=== PATIENT | female | born 1995 | race Two or more races ===

== ENCOUNTER 2022-07-29 22:32 | Emergency (ER) | payer MEDICAID, SELFPAY ==
[2022-07-29 22:49] VITALS: BP 112/73; PULSE 77; RESP 16; TEMP 36.8; O2SAT 98; BMI 29.5
[2022-07-29 23:18] LABS: Hematocrit 40.5 % (37.0-47.0); Hemoglobin 12.7 g/dl (12.0-16.0); Mean Corpuscular HGB Conc 31.4 g/dl (31.0-35.0); Mean Corpuscular Hemoglobin 25.9 pg (27.0-33.0); Mean Corpuscular Volume 82.7 fL (80.0-98.0); Mean Platelet Volume 11.2 fL (9.4-12.3); Platelet Count 293 X10*3/uL (160-400); Red Cell Distribution Width 13.4 % (11.0-16.0); White Blood Count 10.4 X10*3/uL (4.8-10.8)
--- NOTE | 2022-07-29 23:24 | PC.NURSE ---
Pt aox3 resting at the bedside with family member at the bedside. Family member reports pt recently ended menses about five days ago. Menses were irregular with large blood clots. Today pt experiences lower abd pain with bleeding, 11/06. Labs drawn. Urine sample collected and sent. Pending results and physician eval. Call sim within reach.
[2022-07-29 23:29] LABS: Appearance Urine Clear; Color Urine Yellow; Glucose Urine UA Negative (Negative); Leukocyte Esterase Urine Large (3+) (Negative); Nitrite Urine Negative (Negative); Specific Gravity - Urine <= 1.005 (1.005-1.025); UMIC TRIGGER UACC YES; Urine Blood Moderate (2+) (Negative); Urine Ketones Negative (Negative); Urine Protein Negative (Neg-Trace)
[2022-07-29 23:33] VITALS: BP 106/66; PULSE 67; RESP 18; TEMP 36.7; O2SAT 98
[2022-07-29 23:39] LABS: Bacteria Urine None Seen (None Seen); Hyaline Casts Urine 0-2 /LPF (0-2); RBC Urine 0-2 /HPF (0-2); Squamous Epithelial Cell Urine 0-2 /HPF (0-2); UACC Culture Trigger YES; WBC Urine >50 /HPF (0-5)
[2022-07-29 23:40] LABS: Alanine Aminotransferase 10 U/L (0-31); Albumin Level 4.3 g/dL (3.5-5.0); Alkaline Phosphatase 116 U/L (39-117); Anion Gap 14 (12-20); Aspartate Amino Transferase 16 U/L (5-31); Bilirubin Total 0.4 mg/dL (0.0-1.0); Blood Urea Nitrogen 12 mg/dL (9-16); Calcium 9.6 mg/dL (8.4-10.2); Carbon Dioxide 22 mmol/L (22-29); Chloride 109 mmol/L (96-108); Creatinine Clr Calc Pharmacy 95.5; Estimated Glomerular Filt Rate > 60; Glucose Random 79 mg/dL (60-115); HCG Quantitative < 2 mIU/mL; Potassium 4.1 mmol/L (3.3-5.1); Sodium 141 mmol/L (135-145); Total Protein 7.4 g/dL (6.5-8.0)
--- NOTE | 2022-07-30 00:35 | ED.ABDPAIN ---
HPI - Abdominal Pain General Chief Complaint: Abdominal Pain Stated Complaint: lower abd pain Time Seen by Provider: 07/29/22 23:22 History of Present Illness HPI narrative: Patient is a 26-year-old female presents today with having pain on urination. Having increasing frequency. Patient is also having her menstruation right now. No fever no chills. Also having some pain in her flank area. Denies any nausea vomiting. No coughing or congestion or upper respiratory symptoms. No abdominal surgery in the past. Patient does not think she is . Related Data Previous Rx's Medication Instructions Recorded ibuprofen 400 mg tablet 400 mg PO Q6H PRN pain #20 tabs 07/30/22 ondansetron 4 mg disintegrating 4 mg PO TID PRN nausea and 07/30/22 tablet vomiting 5 days #10 tabs sulfamethoxazole 800 1 tab PO BID 14 days #28 tabs 07/30/22 mg-trimethoprim 160 mg tablet (Bactrim DS) Allergies Allergy/AdvReac Type Severity Reaction Status Date / Time No Known Allergies Allergy Verified 07/29/22 22:57 Review of Systems Review of Systems Positive abdominal pain in the lower abdomen Yes all other systems are reviewed and are negative [facility], [facility] Past Medical History Attestation statement: The following information was validated with the patient. Social History Social History Advance Directives: No Advance Directives Information Provided: No Physical Exam ED Vital Signs: Vital Signs - 24 hr 07/29/22 22:49 07/29/22 23:33 Temperature 98.2 F 98.1 F Pulse Rate 77 67 Respiratory Rate 16 18 Blood Pressure 112/73 106/66 Pulse Oximetry 98 98 Oxygen Delivery Method Room Air Room Air BMI result Body Mass Index 29.5 Appearance: Alert. Oriented X3. No acute distress. Eyes: Pupils equal, round and reactive to light. ENT: Pharynx normal. Neck: Normal inspection. Neck supple. No lymph nodes noted. No crepitus CVS: Normal heart rate and rhythm. Pulses normal. Normal S1 and S2 Respiratory: No respiratory distress. Breath sounds normal. No Wheezing. No rales Abdomen: Soft and nontender. No rigidity. No distention. good BS x4 Skin: Skin warm and dry. Normal skin color. Normal skin turgor. Extremities: No lower extremity edema. Neurovascular intact to all extremities. No Lacerations. No Rash Neuro: Oriented X 3. No motor deficit. No sensory deficit. Moving all extermities. No slurred speech Medical Decision Making Medical Decision Making [facility] Narrative: Patient well appearing no acute distress. White count is normal. Vital signs are normal no fever. P patient urine was grossly infected. test was negative. White count was normal. Electrolytes unremarkable. Patient's symptoms consistent with having urinary tract infection question early pyelo with some mild nausea and flank pain. We will go ahead and give a L of fluid Toradol for pain some Zofran for nausea and start patient on Rocephin. Patient will be for additional Bactrim currently in stable condition. Differential Diagnosis Differential Diagnoses: The differential diagnosis associated with the presentation includes Pyelonephritis, urinary tract infection, appendicitis, STDs, related issues, obstruction, abscess, perforation Lab Data [facility] Lab Attestation statement: I reviewed the patient's lab results. 07/29/22 23:13 07/29/22 23:13 Labs: Lab Results 07/29/22 07/29/22 07/29/22 Range/Units 23:13 23:13 23:21 WBC 10.4 (4.8-10.8) X10*3/uL RBC 4.90 (4.20-5.50) X10*6/uL Hgb 12.7 (12.0-16.0) g/dl Hct 40.5 (37.0-47.0) % MCV 82.7 (80.0-98.0) fL MCH 25.9 L (27.0-33.0) pg MCHC 31.4 (31.0-35.0) g/dl RDW 13.4 (11.0-16.0) % Plt Count 293 (160-400) X10*3/uL MPV 11.2 (9.4-12.3) fL Absolute Nucleated RBC 0.000 (0.0-0.012) X10*3/uL Nucleated RBC % (auto) 0.0 (0.0-0.2) /100WBC Sodium 141 (135-145) mmol/L Potassium 4.1 (3.3-5.1) mmol/L Chloride 109 H (96-108) mmol/L Carbon Dioxide 22 (22-29) mmol/L Anion Gap 14 (12-20) BUN 12 (9-16) mg/dL Creatinine 0.77 (0.5-1.4) mg/dL Estim Creat Clear Calc 95.5 Estimated GFR > 60 Random Glucose 79 (60-115) mg/dL Calcium 9.6 (8.4-10.2) mg/dL Total Bilirubin 0.4 (0.0-1.0) mg/dL AST 16 (5-31) U/L ALT 10 (0-31) U/L Alkaline Phosphatase 116 (39-117) U/L Total Protein 7.4 (6.5-8.0) g/dL Albumin 4.3 (3.5-5.0) g/dL Beta HCG, Quant < 2 mIU/mL Urine Color Yellow Urine Appearance Clear Urine pH 7.0 (5.0-9.0) Ur Specific [place] <= 1.005 (1.005-1.025) Urine Protein Negative (Neg-Trace) mg/dL Urine Glucose (UA) Negative (Negative) mg/dL Urine Ketones Negative (Negative) mg/dL Urine Blood Moderate (2+) H (Negative) Urine Nitrite Negative (Negative) Ur Leukocyte Esterase Large (3+) H (Negative) Urine RBC 0-2 (0-2) /HPF Urine WBC >50 H (0-5) /HPF Ur Squamous Epith Cells 0-2 (0-2) /HPF Urine Bacteria None Seen (None Seen) Hyaline Casts 0-2 (0-2) /LPF Independent Historian Clinical information obtained from an independent historian. History obtained from or confirmed by: Spouse Prescription Management I considered prescription management with: Pain Medication and Antibiotic Discharge Plan Discharge Clinical Impression: Pyelonephritis Patient Disposition: Home, Self-Care Instructions: Kidney Infection (ED) Prescriptions: New sulfamethoxazole-trimethoprim [Bactrim DS] 800-160 mg tablet 1 tab PO BID 14 Days Qty: 28 0RF ibuprofen 400 mg tablet 400 mg PO Q6H PRN (Reason: pain) Qty: 20 0RF ondansetron 4 mg tablet,disintegrating 4 mg PO TID PRN (Reason: nausea and vomiting) 5 Days Qty: 10 0RF Referrals: Physician,Unknown J [Primary Care Provider] - 3 days
[2022-07-30] MEDS: Ketorolac Tromethamine 30 MG/ML VIAL IVPUSH (01:23)
[2022-07-30] MEDS: ondansetron HCL 4 MG/2 ML VIAL IVPUSH (01:23)
[2022-07-30] MEDS: cefTRIAXone sodium 1 GM in 0.9 % Sodium Chloride 50 ML IV (01:23)
[2022-07-30] MEDS: 0.9 % Sodium Chloride 1,000 ML 999 ML IV (01:24)
--- NOTE | 2022-07-30 01:35 | PC.NURSE ---
Pt aox3 resting at the bedside. IV line started with 22G on L hand. Medicated as ordered. Tolerated well. Pt aware of plan of care.
[2022-07-30 02:25] VITALS: BP 110/65; PULSE 70; RESP 12; TEMP 36.7; O2SAT 98
--- NOTE | 2022-07-30 02:25 | PC.NURSE ---
Pt aox3 resting at bedside in no apparent distress. IV line removed with no complications. Pt tolerated well. Discharge instructions reviewed with pt. Pt verbalizes understanding.
== END 2022-07-30 02:27 | disposition home or self-care (01) ==
PROVIDERS: Emergency Provider Emergency Medicine Emergency Medical Services
DX: N12 Tubulo-interstitial nephritis, not specified as acute or chronic (principal); R10.30 Lower abdominal pain, unspecified; Z79.899 Other long term (current) drug therapy
CPT/HCPCS: 36415; 80053; 81001; 84702; 85027; 87086; 96361; 96365; 96375; 99284; J0696; J1885; J2405